=== PATIENT | female | born 1945 | race Caucasian/White ===

== ENCOUNTER 2018-02-07 19:55 | Emergency (ER) | payer OTHER ==
[~2018-02-07] VITALS: Ht 182.9 cm; Wt 116.8 kg
[~2018-02-07 19:55] MED LIST: BACTRIM,SEPT1 TABLET PO; LOPRESSOR100 M1 PO; MICROZIDE12.5 M1 PO; MINIPRESS2 MG PO; MOBIC7.5 MG PO; NORVASC10 MG PO; PRILOSEC20 MG PO; ROBITUSSIN AC,T10 ML PO; TOVIAZ4 MG PO; TRAMADOL HCL50 MG PO; TYLENOL REGULA325 MG PO; ULTRAM50 MG PO; VENTOLIN HFA18 GM IH; VITAMIN D1000 UNIT PO; ZITHROMAX Z-PA250 MG PO
[2018-02-07 20:31] LABS: HEMATOCRIT 38.2 % (36.0-46.0); HEMOGLOBIN 12.3 G/DL (11.9-15.5); MCHC 32.2 G/DL (30.0-36.0); MCV 90.1 FL (83-99); PLATELET COUNT 237 K/uL (156-360); RBC DIS.WIDTH-SD 46.5 % (39-53); RED BLOOD COUNT 4.24 M/uL (3.80-5.20); WHITE BLOOD COUNT 7.2 K/uL (4.1-10.2)
[2018-02-07 20:34] LABS: ALBUMIN 3.9 g/dL (3.2-4.8); CHLORIDE 107 mEq/L (99-109); POTASSIUM 4.2 mEq/L (3.7-5.4); SODIUM 144 mEq/L (136-147)
[2018-02-07 20:37] LABS: GLUCOSE 215 mg/dL (70-99); TOTAL PROTEIN 6.8 g/dL (6.4-8.3)
[2018-02-07 20:39] LABS: TOTAL BILIRUBIN 0.4 mg/dL (0.0-1.0)
[2018-02-07 20:40] LABS: ALKALINE PHOSPHATASE 102 IU/L (3-129); CREATININE 1.6 mg/dL (0.6-1.3); GFR ESTIMATE (CALCULATED) 33 mL/min/
[2018-02-07 20:41] LABS: UREA NITROGEN (BUN) 38 mg/dL (9-23)
[2018-02-07 20:42] LABS: AST (GOT) 17 IU/L (2-34)
[2018-02-07 20:43] LABS: ALT (GPT) 53 IU/L (3-49)
[2018-02-07 23:23] VITALS: BP 156/76
== END 2018-02-07 23:23 | disposition home or self-care (01) ==
LOC: EME 19:55
DX: Z48.89 Encounter for other specified surgical aftercare (principal); E89.0 Postprocedural hypothyroidism; I10 Essential (primary) hypertension; K21.9 Gastro-esophageal reflux disease without esophagitis; Z90.710 Acquired absence of both cervix and uterus
CPT/HCPCS: 70360; 80053; 85027; 99281; 99284